=== PATIENT | female | born 1960 | race Caucasian/White ===

== ENCOUNTER → 2017-02-11 | Outpatient (CLI) | payer OTHER ==
[~2017-02-11] MED LIST: BUPIVACAINE MPF 0.25% 10 ML VIAL. ONE; BUPIVACAINE MPF 0.5% 30 ML VIAL. ONE; LIDOCAINE 1% PF 30 ML VIAL. ONE; methylPREDNISolone ACETATE 40 MG/ML VIAL. ONE
== END | disposition home or self-care (01) ==
LOC: SURG 12:32
PROVIDERS: ATTEND Anesthesiology Pain Medicine
DX: M47.816 Spondylosis without myelopathy or radiculopathy, lumbar region (principal); I10 Essential (primary) hypertension; I48.91 Unspecified atrial fibrillation; M19.91 Primary osteoarthritis, unspecified site
CPT/HCPCS: 64493; 64494; J1030; J2001; J3490

== ENCOUNTER → 2017-02-22 | Outpatient (CLI) | payer OTHER | END | disposition home or self-care (01) | LOC: SURG 12:47 | PROVIDERS: ATTEND Anesthesiology | DX: M54.16 Radiculopathy, lumbar region (principal); I10 Essential (primary) hypertension; I48.91 Unspecified atrial fibrillation; M19.90 Unspecified osteoarthritis, unspecified site | CPT/HCPCS: 99214 ==

== ENCOUNTER → 2017-03-22 | Outpatient (CLI) | payer OTHER ==
[~2017-03-22] MED LIST changes: +0.9 % SODIUM CHLORIDE 10 ML VIAL ONE; -BUPIVACAINE MPF 0.5% 30 ML VIAL. ONE; +DEXAMETHASONE SOD PHOS 4 MG/ML VIAL ONE; +IOHEXOL 300 MG/ML 50 ML VIAL. ONE; -methylPREDNISolone ACETATE 40 MG/ML VIAL. ONE
== END | disposition home or self-care (01) ==
LOC: SURG 12:41
PROVIDERS: ATTEND Anesthesiology
DX: M54.10 Radiculopathy, site unspecified (principal); I10 Essential (primary) hypertension; I48.91 Unspecified atrial fibrillation; M19.91 Primary osteoarthritis, unspecified site
CPT/HCPCS: 64483; J1100; J2001; Q9967; J3490

== ENCOUNTER → 2017-04-19 | Outpatient (CLI) | payer OTHER | END | disposition home or self-care (01) | LOC: SURG 11:28 | PROVIDERS: ATTEND Anesthesiology | DX: M51.36 Other intervertebral disc degeneration, lumbar region (principal); I10 Essential (primary) hypertension | CPT/HCPCS: 99214 ==

== ENCOUNTER → 2017-05-20 | Outpatient (CLI) | payer OTHER ==
[~2017-05-20] MED LIST changes: -0.9 % SODIUM CHLORIDE 10 ML VIAL ONE
== END | disposition home or self-care (01) ==
LOC: SURG 11:42
PROVIDERS: ATTEND Anesthesiology Pain Medicine
DX: M54.16 Radiculopathy, lumbar region (principal); I48.91 Unspecified atrial fibrillation; I10 Essential (primary) hypertension; M19.90 Unspecified osteoarthritis, unspecified site; Z79.82 Long term (current) use of aspirin
CPT/HCPCS: 64483; 64484; 99214; J1100; J2001; J3490; Q9967

== ENCOUNTER → 2018-01-03 | Outpatient (CLI) | payer OTHER | END | disposition home or self-care (01) | LOC: SURG 12:25 | PROVIDERS: ATTEND Anesthesiology | DX: M47.816 Spondylosis without myelopathy or radiculopathy, lumbar region (principal); I48.91 Unspecified atrial fibrillation; M19.91 Primary osteoarthritis, unspecified site; I10 Essential (primary) hypertension | CPT/HCPCS: 99214 ==

== ENCOUNTER → 2018-01-24 | Outpatient (CLI) | payer OTHER ==
[~2018-01-24] MED LIST changes: -BUPIVACAINE MPF 0.25% 10 ML VIAL. ONE; +BUPIVACAINE MPF 0.25% 30 ML VIAL. ONE; -DEXAMETHASONE SOD PHOS 4 MG/ML VIAL ONE; -IOHEXOL 300 MG/ML 50 ML VIAL. ONE; +LIDOCAINE 1% PF 2 ML VIAL. ONE; -LIDOCAINE 1% PF 30 ML VIAL. ONE
== END | disposition home or self-care (01) ==
LOC: SURG 13:01
PROVIDERS: ATTEND Anesthesiology
DX: M47.816 Spondylosis without myelopathy or radiculopathy, lumbar region (principal); I10 Essential (primary) hypertension; M19.90 Unspecified osteoarthritis, unspecified site; Z90.710 Acquired absence of both cervix and uterus; Z88.8 Allergy status to other drugs, medicaments and biological substances; Z79.82 Long term (current) use of aspirin; Z79.899 Other long term (current) drug therapy
CPT/HCPCS: 64493; 64494; J3490

== ENCOUNTER → 2018-02-14 | Outpatient (CLI) | payer OTHER | END | disposition home or self-care (01) | LOC: SURG 11:48 | PROVIDERS: ATTEND Anesthesiology | DX: M47.817 Spondylosis without myelopathy or radiculopathy, lumbosacral region (principal) | CPT/HCPCS: 99214 ==

== ENCOUNTER → 2018-03-07 | Day surgery (SDC) | payer OTHER ==
[~2018-03-07] MED LIST changes: +ASPI81TA50 PO; +DEXAMETHASONE SOD PHOS 4 MG/ML VIAL ONE; +HYDR-2758 PO; -LIDOCAINE 1% PF 2 ML VIAL. ONE; +LIDOCAINE 1% PF 30 ML VIAL. ONE; +METO25TA2 PO; +MIDAZOLAM HCL PF 2 MG/2 ML VIAL. ONE; +PROP325C2 PO
[2018-03-07 14:16] VITALS: BP 127/85
== END | disposition home or self-care (01) ==
LOC: SURG 12:00
PROVIDERS: ATTEND Anesthesiology
DX: M47.816 Spondylosis without myelopathy or radiculopathy, lumbar region (principal); I10 Essential (primary) hypertension; M19.90 Unspecified osteoarthritis, unspecified site; Z90.710 Acquired absence of both cervix and uterus; Z88.1 Allergy status to other antibiotic agents; Z88.8 Allergy status to other drugs, medicaments and biological substances; Z79.82 Long term (current) use of aspirin; Z79.899 Other long term (current) drug therapy
CPT/HCPCS: 64635; 64636; J1100; J2001; J2250; J3010; J3490

== ENCOUNTER → 2018-04-04 | Day surgery (SDC) | payer OTHER ==
[~2018-04-04] MED LIST changes: -BUPIVACAINE MPF 0.25% 30 ML VIAL. ONE; +BUPIVACAINE MPF 0.5% 30 ML VIAL. ONE; +HYDR-2155 PO; -HYDR-2758 PO
[2018-04-04 09:21] VITALS: BP 117/83
== END | disposition home or self-care (01) ==
LOC: SURG 07:26
PROVIDERS: ATTEND Anesthesiology
DX: M47.816 Spondylosis without myelopathy or radiculopathy, lumbar region (principal); Z79.82 Long term (current) use of aspirin; Z79.899 Other long term (current) drug therapy
CPT/HCPCS: 64635; 64636; J1100; J2001; J3490; 99152

== ENCOUNTER → 2018-04-18 | Outpatient (CLI) | payer OTHER ==
[2018-04-04 09:21] VITALS: BP 117/83
[~2018-04-18] MED LIST changes: -BUPIVACAINE MPF 0.5% 30 ML VIAL. ONE; -DEXAMETHASONE SOD PHOS 4 MG/ML VIAL ONE; -LIDOCAINE 1% PF 30 ML VIAL. ONE; -MIDAZOLAM HCL PF 2 MG/2 ML VIAL. ONE
== END | disposition home or self-care (01) ==
LOC: SURG 08:54
PROVIDERS: ATTEND Anesthesiology
DX: M47.817 Spondylosis without myelopathy or radiculopathy, lumbosacral region (principal); G89.4 Chronic pain syndrome
CPT/HCPCS: 99214

== ENCOUNTER 2020-03-11 08:28 | Emergency (ER) | payer OTHER ==
[~2020-03-11] VITALS: Ht 174 cm; Wt 68.6 kg
--- NOTE | 2020-03-11 09:03 | PHYS DOC ---
Adult General Chief Complaint Chief Complaint: LOWER EXT PAIN HPI HPI Patient is a 59-year-old female who presents with left medial knee pain. Onset was yesterday evening, patient was unsteady on stepstool at height of x1 step and fell backwards planting on her left leg and subsequently falling on her b ehind. Patient reports she was ambulatory after the event, did not hit her head, no loss of consciousness. Nonetheless, patient reports increased effusion on left medial side of knee with pain with palpation. She is able to ambulate and bear weight at this time but reports whenever she is cutting or changing directions, essentially any twisting movement of her left knee causes pain. She has atrial fibrillation and currently on aspirin. She has iced it and applied heat, has taken Tylenol 500 mg once for the pain. She presents today for ongoing pain and concern for potential bony abnormality. She denies any motor or sensory changes, no neurologic deficits noted Review of Systems Review of Systems Fourteen body systems of review of systems have been reviewed. See HPI for pertinent positives and negative responses, other saha all other systems are negative, non-pertinent or non-contributory Allergies Allergies Allergies Coded Allergies Type Severity Reaction Last Updated Verified sulfamethoxazole Allergy Unknown 03/07/18 Yes trimethoprim Allergy Unknown 03/07/18 Yes Physical Exam Physical Exam Constitutional: Well developed, well nourished, no acute distress, non-toxic appearance. HENT: Normocephalic, atraumatic, bilateral external ears normal, oropharynx moist, no oral exudates, nose normal. Eyes: PERRLA, EOMI, conjunctiva normal, no discharge. Neck: Normal range of motion, no tenderness, supple, no stridor. Cardiovascular: Heart rate regular, sinus rhythm, no murmurs rubs or gallops Lungs & Thorax: Bilateral breath sounds clear to auscultation Abdomen: Bowel sounds normal, soft, no tenderness, no masses, no pulsatile m asses. Nonsurgical abdomen, no peritoneal signs Skin: Warm, dry, no erythema, no rash. Back: No tenderness, no CVA tenderness. Extremities: No tenderness, no cyanosis, no clubbing, ROM intact, no edema. Left knee Patella nontender, negative patellar grind test Lateral Joint line nontender, medial joint belt line feeder to palpation with mild effusion present Posterior drawer and Lachmans exam without significant laxity Varus and Valgus Stress without significant laxity but there is pain with palpation of medial portion of knee during examination Full Range of Motion with full strength Neurovascular exam distally in tact per routine Compartments surrounding are soft Neurologic: Alert and oriented X 3, grossly normal motor & sensory function, no focal deficits noted. Psychologic: Affect normal, judgement normal, mood normal. Current Patient Data Vital Signs Vital Signs Date Time Temp Pulse Resp B/P (MAP) Pulse Ox O2 Delivery O2 Flow Rate FiO2 03/11/20 10:00 89 16 134/85 (101) 98 Room Air 03/11/20 09:23 98.2 EKG EKG [] Radiology/Procedures Radiology/Procedures PROCEDURE: KNEE LEFT 4V EXAM: AP, oblique, lateral and tangential patellar views of the left knee DATE: 03/11/2020 8:57 AM INDICATION: Reason: MEDIAL KNEE PAIN TWISTING INJURY / Spl. Instructions: / History: COMPARISON: No Prior FINDINGS: No evidence of acute fracture or dislocation. Joint spaces are preserved without significant degenerative/proliferative change. Neutral patellar tracking. Atherosclerotic vascular calcifications are seen. No joint effusion. IMPRESSION: 1. Small left knee joint effusion. 2. No evidence of acute fracture or dislocation. Electronically signed by: Neeraj Roy MD (03/11/2020 9:22 AM) [id number] Heart Score Risk Factors: Risk Factors: DM, Current or recent (<one month) smoker, HTN, HLP, family history of CAD, obesity. Risk Scores: Risk Factors: DM, Current or recent (<one month) smoker, HTN, HLP, family history of CAD, obesity. Course & Med Decision Making Course & Med Decision Making Pertinent Labs and Imaging studies reviewed. (See chart for details) Discussed most likely diagnosis of soft tissue/ligamentous/meniscal injury without any signs of bony abnormalities Patient ambulatory at this time. Joint decision to discharge home with knee immobilizer, crutches, and continued supportive care practices with outpatient PCP follow-up I advised patient that outpatient physical therapy with consideration for MRI is a high possibility, she will discuss this with her PCP during outpatient follow-up with an upcoming 1 week Strict return precautions were discussed with good understanding by patient, all questions and concerns addressed prior to ER departure in stable condition Dragon Disclaimer Dragon Disclaimer This electronic medical record was generated, in whole or in part, using a voice recognition dictation system. Departure Departure: Impression: Primary Impression: Left medial knee pain Disposition: 01 DC HOME SELF CARE/HOMELESS Condition: STABLE Referrals: SHASHI FAGAN DO (PCP) Patient Instructions: Knee Effusion, Knee Exercises, Generic, SportsMed, RICE - Routine Care for Injuries Additional Instructions: As discussed prior to ER departure, please call your primary care physician to schedule outpatient follow-up in upcoming 72 hours You would benefit from repeat examination after consistent supportive care practices such as icing, compressing, elevating, and utilizing Tylenol as needed for pain As discussed there might be a role for further imaging such as MRI versus outpatient physical therapy referral, please discuss these with your primary care physician If any other concerning signs or symptoms present prior to outpatient follow-up please do not hesitate to come back for repeat evaluation It was a pleasure to take care of you and I wish you a speedy recovery RYAN BUCHANAN DO Mar 11, 2020 09:03
--- NOTE | 2020-03-11 09:25 | RAD ---
EXAM: AP, oblique, lateral and tangential patellar views of the left knee DATE: 03/11/2020 8:57 AM INDICATION: Reason: MEDIAL KNEE PAIN TWISTING INJURY / Spl. Instructions: / History: COMPARISON: No Prior FINDINGS: No evidence of acute fracture or dislocation. Joint spaces are preserved without significant degenerative/proliferative change. Neutral patellar tracking. Atherosclerotic vascular calcifications are seen. No joint effusion. IMPRESSION: 1. Small left knee joint effusion. 2. No evidence of acute fracture or dislocation. Electronically signed by: Neeraj Roy MD (03/11/2020 9:22 AM) [id number]
[2020-03-11 10:00] VITALS: BP 134/85
== END 2020-03-11 10:05 | disposition home or self-care (01) ==
LOC: ER 08:28
DX: M25.562 Pain in left knee (principal); Z88.2 Allergy status to sulfonamides; Z88.1 Allergy status to other antibiotic agents; W18.39XA Other fall on same level, initial encounter; Y93.89 Activity, other specified; Y92.89 Other specified places as the place of occurrence of the external cause; Y99.8 Other external cause status
CPT/HCPCS: 29505; 73564; 99284